=== PATIENT | female | born 1950 | race Caucasian/White ===

== ENCOUNTER 2018-09-07 12:23 | Emergency (ER) | payer OTHER ==
[~2018-09-07] VITALS: Ht 172.7 cm; Wt 95.3 kg
[2018-09-07 13:39] VITALS: BP 145/85
[2018-09-07] MEDS ORDERED: KETOROLAC TROMETH 60MG/2ML VIAL IM ONE (13:45)
== END 2018-09-07 14:22 | disposition home or self-care (01) ==
LOC: EDBD 12:23 → ER 12:26
DX: S29.011A Strain of muscle and tendon of front wall of thorax, initial encounter (principal); I10 Essential (primary) hypertension; W19.XXXA Unspecified fall, initial encounter; Y93.89 Activity, other specified; Y92.89 Other specified places as the place of occurrence of the external cause; Y99.8 Other external cause status
CPT/HCPCS: 71046; 96372; 99283; J1885